=== PATIENT | female | born 1970 | race Caucasian/White ===

== ENCOUNTER 2019-04-25 10:28 | Outpatient (CLI) | payer BC ==
--- NOTE | 2019-04-25 11:55 | RAD ---
Barium swallow: 04/25/2019 COMPARISON: None HISTORY: Gastroesophageal reflux disease, LAP-BAND FINDINGS: Pants Busheler radiograph of the chest demonstrate no pneumothorax or pleural fluid and no focal con solidation or alveolar edema. Barium swallow was performed. No evidence for mass lesion or stricture is evident within the esophagu s. Of note, the lap band is slightly below the level of the gastroesophageal junction, instead at the level of the gastric fundus. A portion of the gastric fundus has herniated through the lap band a nd is now cranial to the lap band. This portion of the stomach fills and empties with slight delay, especially when the patient is in the oblique prone position. The patient ingested a barium tablet wh ich traverses the gastroesophageal junction as well as the lap band without delay. No gastroesophageal reflux could be elicited during this examination. Exposure data: 1.3 minutes of fluoroscopic time, 182.72 mg IMPRESSION: The lap band is located slightly distal to the gastroesophageal junction with a portion o f the gastric fundus which herniates through the lap band and is now located cranial to the lap band.
== END 2019-04-25 10:29 | disposition home or self-care (01) ==
LOC: RAD 10:28
PROVIDERS: ATTEND Surgery
DX: K21.9 Gastro-esophageal reflux disease without esophagitis (principal)
CPT/HCPCS: 74220

== ENCOUNTER 2019-05-23 10:59 | Outpatient (CLI) | payer BC | END 2019-05-23 11:00 | disposition home or self-care (01) | LOC: DTY/OP 10:59 | PROVIDERS: ATTEND Surgery | DX: E66.01 Morbid (severe) obesity due to excess calories (principal) | CPT/HCPCS: 97802 ==

== ENCOUNTER 2019-07-05 08:08 | Outpatient (CLI) | payer BC ==
--- NOTE | 2019-07-05 11:43 | RAD ---
RADIOGRAPH CHEST 2 VIEWS: DATE: 07/05/2019 HISTORY: 48-year-old female for preoperative clearance FINDINGS: There is no airspace density, pulmonary edema, pleural effusion, pneumothorax, or cardiomegaly. IMPRESSION: No acute cardiopulmonary findings.
[2019-07-05 11:50] LABS: Hemoglobin 13.2 g/dL (12.0-16.0); Mean Corpuscular HGB CONC 31.9 g/dL (32.0-36.0); Mean Corpuscular Hemoglobin 28.3 pg (27.0-31.0); Mean Corpuscular Volume 88.9 fL (78.0-98.0); Mean Platelet Volume 8.1 fL (7.4-10.4); Platelet Count 268 thou/uL (130-400); RBC Distribution Width 12.7 % (11.5-14.5); Red Blood Cell (RBC) Count 4.67 mill/uL (4.20-5.40); White Blood Cell (WBC) Count 9.4 thou/uL (4.8-10.8)
[2019-07-05 12:04] LABS: Hemoglobin A1c 5.2 % (4.0-6.0)
[2019-07-05 12:18] LABS: ALT (SGPT) 14 U/L (8-55); AST (SGOT) 16 U/L (5-34); Albumin 4.4 g/dL (3.5-5.0); Alkaline Phosphatase 75 U/L (40-110); Anion Gap 12 mmol/L (10-20); BUN (Urea Nitrogen) 14 mg/dL (7.0-18.7); Bilirubin, Total 0.3 mg/dL (0.2-1.2); Calc. Creatinine Clearance 0 mL/min (70-130); Carbon Dioxide 27 mmol/L (22-29); Chloride 104 mmol/L (98-107); Estimated GFR-MDRD 86; Globulin 2.5 g/dL (2.4-3.5); Glucose 85 mg/dL (70-105); Potassium 4.1 mmol/L (3.5-5.1); Protein, Total 6.9 g/dL (6.0-8.3); Sodium 139 mmol/L (136-145)
[2019-07-05 12:24] LABS: BHCG - Serum Negative (NEGATIVE); Pregs Control Background? CLEAR/WHITE (CLR/WHITE); Pregs Control Bar Appear? YES (CONTROL BAR)
== END 2019-07-05 08:09 | disposition home or self-care (01) ==
LOC: LABBT 08:08
PROVIDERS: ATTEND Surgery
DX: Z01.818 Encounter for other preprocedural examination (principal); E66.01 Morbid (severe) obesity due to excess calories
CPT/HCPCS: 71046; 80053; 83036; 84703; 85027; 93005; 93010

== ENCOUNTER 2019-07-05 10:15 | Inpatient (IN) | payer BC ==
[2019-07-18] MEDS ORDERED: Fentanyl 100 MCG/2 ML VIAL ONE (10:06)
[2019-07-18] MEDS ORDERED: Midazolam HCl 2 mg/2 ml Vial ONE ×2 (10:06→10:30)
[2019-07-18] MEDS ORDERED: Heparin 5,000 UNITS/ML VIAL ONE (10:30)
[2019-07-18] MEDS ORDERED: Bupivacaine 0.25% HCL 30 ML VIAL ONE (10:41)
[2019-07-18] MEDS ORDERED: Lidocaine 1% w/Epinephrine 1:100K 20 ML VIAL ONE (10:41)
[2019-07-18] MEDS ORDERED: PROPOFOL 200 MG/20 ML VIAL ONE (11:40)
[2019-07-18] MEDS ORDERED: Ondansetron PF 4 MG/2 ML Vial ONE (11:40)
[2019-07-18] MEDS ORDERED: Lidocaine 1% PF 5 ML VIAL ONE (11:40)
[2019-07-18] MEDS ORDERED: Ketorolac Tromethamine 30 MG/ML VIAL ONE (11:40)
[2019-07-18] MEDS ORDERED: Glycopyrrolate 0.2 MG/ML 5 ML SYRINGE ONE (11:40)
[2019-07-18] MEDS ORDERED: Rocuronium Bromide 10 MG/ML (10ML VIAL) ONE (11:40)
[2019-07-18] MEDS ORDERED: Dexamethasone 20 MG/5 ML VIAL ONE (11:40)
[2019-07-18] MEDS ORDERED: Promethazine HCl 25 MG/ML VIAL IM PRN ×3 (12:44→14:05)
[2019-07-18] MEDS ORDERED: Promethazine HCl 25 MG/ML VIAL SLOW IVP PRN (12:44)
[2019-07-18] MEDS ORDERED: Ondansetron HCl/PF 4 MG/2 ML Vial IVP PRN (12:44)
[2019-07-18] MEDS ORDERED: diphenhydrAMINE 50 MG/ML VIAL IVP PRN ×2 (13:57→14:05)
[2019-07-18] MEDS ORDERED: Dextrose 50% Abboject 50 ML SYRINGE SLOW IVP PRN (13:57)
[2019-07-18] MEDS ORDERED: Dextrose 5% in Water 1,000 ML IV PRN (13:57)
[2019-07-18] MEDS ORDERED: hydrALAZINE 20 MG/ML VIAL SLOW IVP PRN (13:57)
[2019-07-18] MEDS ORDERED: Ondansetron PF 4 MG/2 ML Vial IVP PRN ×2 (13:57→14:05)
[2019-07-18] MEDS ORDERED: Hydrocodone-Acetamin 15 ML UDCUP PO PRN (13:57)
[2019-07-18] MEDS ORDERED: diphenhydrAMINE 50 MG/ML VIAL IM PRN (14:05)
[2019-07-18] MEDS ORDERED: diphenhydrAMINE 25 MG CAP PO PRN (14:05)
[2019-07-18] MEDS ORDERED: fentaNYL Citrate/PF 2,000 MCG in Sodium Chloride 0.9% 60 ML IV PRN (14:05)
[2019-07-18] MEDS ORDERED: Zolpidem Tartrate 5 MG TAB PO PRN (14:05)
[2019-07-18] MEDS ORDERED: Naloxone HCl 0.4 mg/ml Vial IV PRN (14:05)
[2019-07-18] MEDS ORDERED: Communication Order-Pharmacy FS SCH (14:15)
[2019-07-18 15:45] VITALS: BMI 37.4
[2019-07-18] MEDS: D5 1/2 NS w/20 mEq KCL 1,000 ML IV SCH (16:30)
[2019-07-18] MEDS: Mometasone/Formoterol 120 PUFF INHALER INH SCH (19:01)
[2019-07-18] MEDS ORDERED: Montelukast Sodium 10 mg Tablet PO SCH (21:00)
[2019-07-18] MEDS ORDERED: PROVENTIL INHALER 6.7 G (200 INHALATIONS) INH PRN (21:00)
[2019-07-18] MEDS ORDERED: Enoxaparin Sodium 40 MG/0.4 ML SYRINGE SC SCH (21:00)
[2019-07-19] MEDS: D5 1/2 NS w/20 mEq KCL 1,000 ML IV SCH ×2 (01:45→09:02)
[2019-07-19 04:57] LABS: #Lymphocytes 0.9 thou/uL (1.20-3.40); #Monocytes 0.7 thou/uL (0.11-0.59); #Neutrophils 8.8 thou/uL (1.40-6.50); %Basophils 0.1 % (0.0-1.0); %Eosinophils 0.3 % (0.0-10.0); %Lymphocytes 8.7 % (21.0-51.0); %Monocytes 6.7 % (0.0-10.0); %Neutrophils 84.2 % (42.0-75.0); Hemoglobin 11.7 g/dL (12.0-16.0); Mean Corpuscular HGB CONC 32.8 g/dL (32.0-36.0); Mean Corpuscular Hemoglobin 30.2 pg (27.0-31.0); Mean Corpuscular Volume 92.2 fL (78.0-98.0); Mean Platelet Volume 8.8 fL (7.4-10.4); Platelet Count 230 thou/uL (130-400); RBC Distribution Width 12.7 % (11.5-14.5); Red Blood Cell (RBC) Count 3.87 mill/uL (4.20-5.40); White Blood Cell (WBC) Count 10.5 thou/uL (4.8-10.8)
[2019-07-19 05:19] LABS: Anion Gap 13 mmol/L (10-20); BUN (Urea Nitrogen) 8 mg/dL (7.0-18.7); Calc. Creatinine Clearance 138 mL/min (70-130); Calcium 8.1 mg/dL (7.8-10.44); Carbon Dioxide 21 mmol/L (22-29); Chloride 107 mmol/L (98-107); Estimated GFR-MDRD 74; Glucose 100 mg/dL (70-105); Potassium 4.5 mmol/L (3.5-5.1); Sodium 136 mmol/L (136-145)
[2019-07-19] MEDS: Mometasone/Formoterol 120 PUFF INHALER INH SCH (06:54)
[2019-07-19 08:10] VITALS: BP 96/65
[2019-07-19] MEDS ORDERED: Hydrocodone-Acetamin 15 ML UDCUP PO PRN (08:52)
[2019-07-19] MEDS ORDERED: Pantoprazole 40 MG VIAL IVP SCH (09:00)
[2019-07-19] MEDS ORDERED: Escitalopram Oxalate 20 mg Tablet PO SCH (09:00)
[2019-07-19 11:03] VITALS: TEMP 98.4
--- NOTE | 2019-07-19 14:40 | OP ---
DATE OF PROCEDURE: 07/18/2019 PREOPERATIVE DIAGNOSES: 1. Other complication of gastric band. 2. Morbid obesity. 3. Dysphagia. POSTOPERATIVE DIAGNOSES: 1. Other complication of gastric band. 2. Morbid obesity. 3. Dysphagia. 4. Hiatal hernia. PROCEDURES PERFORMED: 1. Laparoscopic removal of gastric band and subcutaneous port. 2. Laparoscopic sleeve gastrectomy with Steen staple line reinforcements and 38-[place] bougie. 3. Laparoscopic hiatal hernia repair without fundoplication. ANESTHESIA: General. ESTIMATED BLOOD LOSS: Minimal. COMPLICATIONS: None. FINDINGS: There was small paraesophageal hiatal hernia. DESCRIPTION OF PROCEDURE: The patient was taken to the operating room and laid supine on the operating room table. After general anesthetic was obtained, OG tube was used to decompress the stomach. The abdomen was prepped and draped in a sterile fashion. Left subcostal 5-mm Optiview trocar was placed in usual fashion. High-flow pneumoperitoneum was obtained. Left and right abdominal 12-mm ports as well as a right subcostal 5-mm port were placed under direct visualization. There were some adhesions taken down in the area of the pylorus of the stomach. A 5-mm incision was made at the xiphoid and Cary was used to raise the liver off the GE junction. Short gastric was taken down from mid body of stomach to left rk of diaphragm. Left rk, angle of His, and fundus were completely dissected. There was more scar tissue than normal in this area given the previous placement of band. The peritoneum was cauterized over the top of the lap band buckle. The band was able to be unbuckled and removed from behind the stomach. The tubing was cut as the lap band exited the abdomen. Dissection was performed over the caudate lobe medially and the right rk of the diaphragm was found. There was a hiatal hernia. Circumferential dissection of the esophagus and the GE junction was performed without injury. Window was made posterior to the GE junction and the right and left rk were each dissected out and isolated. OG tube was removed and 38 bougie was brought in its tip left in the antrum of the stomach. The short gastrics were taken down to a distance of 6 cm proximal to the pylorus. Multiple loads of [place] stapling device with Steen staple line reinforcements were used to perform the sleeve. The first was a green load fired up at a distance of 6 cm proximal to the pylorus angled up towards the incisura. Multiple loads were then fired up along the bougie and the stomach was completely transected at the angle of His. The stomach was removed from the left abdominal incision. This fascial defect was closed using GraNee needle and 0 Vicryl tie. The lap band itself had been removed from this incision as well. There was a small bleeder on the top of the spleen. This was controlled using Surgicel and an unfolded Ray-Sabas. All Ray-Sabas's and the Surgicel were removed from the abdomen prior to the end of the procedure. EGD scope was passed through esophagus and stomach to the level of duodenum without obstruction. No stricture at the incisura. No air leakage through the staple lines. EGD scope was used to decompress the stomach. It was pulled and removed. All port sites were infiltrated using local anesthetic. All ports were removed under camera visualization. Pneumoperitoneum was let down. An incision was made over the lap band port and this port was removed. Incisions were all irrigated and closed using 4-0 Monocryl and Dermabond. Prior to finishing the intraabdominal portion of the procedure, the posterior crura were closed using 1 Ethibond suture and the tie knot system. Care was taken to avoid making the GE junction too tight. The patient was sent to Recovery in stable condition. All instrument counts, needle counts, and lap counts were correct. Job ID: [id number]
--- NOTE | 2019-07-19 14:41 | DIS ---
DATE OF ADMISSION: 07/18/2019 DATE OF DISCHARGE: 07/19/2019 ADMITTING DIAGNOSES: 1. Other complication of gastric band. 2. Dysphagia. 3. Morbid obesity. 4. Hiatal hernia. DISCHARGE DIAGNOSES: 1. Other complication of gastric band. 2. Dysphagia. 3. Morbid obesity. 4. Hiatal hernia. PROCEDURES PERFORMED: Laparoscopic sleeve gastrectomy over removal of lap band and hiatal hernia repair by Dr. Arrieta without complication. CONDITION ON DISCHARGE: Improved. HOSPITAL COURSE: On postop day #1, the patient is doing well. She tolerated the liquid diet. She is ambulatory. She has minimal pain. She is discharged home. Prescriptions already sent over to her pharmacy. She will follow up with me in 2 weeks. Job ID: [id number]
== END 2019-07-19 14:25 | disposition home or self-care (01) | DRG 328 ==
LOC: SURG A 07-18 09:36 → EDSTATUS 07-18 10:15 → SURG A 07-18 15:48
PROVIDERS: ADMIT Surgery; ATTEND Surgery
PROC: 0DP64CZ Removal of Extraluminal Device from Stomach, Percutaneous Endoscopic Approach (ICD-10-PCS; principal; 2019-07-18)
PROC: 0DB64Z3 Excision of Stomach, Percutaneous Endoscopic Approach, Vertical (ICD-10-PCS; 2019-07-18)
PROC: 0BQT4ZZ Repair Diaphragm, Percutaneous Endoscopic Approach (ICD-10-PCS; 2019-07-18)
DX: K95.09 Other complications of gastric band procedure (principal); Y84.8 Other medical procedures as the cause of abnormal reaction of the patient, or of later complication, without mention of misadventure at the time of the procedure; E66.01 Morbid (severe) obesity due to excess calories; E78.00 Pure hypercholesterolemia, unspecified; K21.9 Gastro-esophageal reflux disease without esophagitis; G47.33 Obstructive sleep apnea (adult) (pediatric); F41.9 Anxiety disorder, unspecified; G43.909 Migraine, unspecified, not intractable, without status migrainosus; E78.5 Hyperlipidemia, unspecified; J30.2 Other seasonal allergic rhinitis; R13.10 Dysphagia, unspecified; K44.9 Diaphragmatic hernia without obstruction or gangrene; Z68.37 Body mass index [BMI] 37.0-37.9, adult; Z79.899 Other long term (current) drug therapy; Z99.89 Dependence on other enabling machines and devices
CPT/HCPCS: 36415; 80048; 85025; 88307; 88312; 90471; 90732; 94760; C9113; G0009; J0690; J1100; J1644; J1650; J1885; J2001; J2250; J2405; J2704; J3010; Q0163; S0020

== ENCOUNTER 2019-07-25 16:00 | Day surgery (SDC) | payer BC ==
[2019-07-25] MEDS ORDERED: Sodium Chloride 0.9% 2,000 ML IV SCH (16:15)
[2019-07-25 16:41] VITALS: BP 122/69; TEMP 98.5
[2019-07-25] MEDS ORDERED: Multivitamins, Adult 10 ML, Thiamine HCl 100 MG in Sodium Chloride 0.9% 500 ML IV SCH (17:00)
[2019-07-25] MEDS ORDERED: Ondansetron PF 4 MG/2 ML Vial SLOW IVP PRN (17:25)
== END 2019-07-25 18:35 | disposition home or self-care (01) ==
LOC: ONC/OP 16:00
PROVIDERS: ATTEND Surgery
DX: E86.0 Dehydration (principal)
CPT/HCPCS: 96361; 96365; 96366; 96375; J3411; J7050

== ENCOUNTER 2019-08-01 08:44 | Outpatient (CLI) | payer BC ==
--- NOTE | 2019-08-01 09:52 | ULT ---
ULTRASOUND WITH DOPPLER DUPLEX VENOUS LOWER EXTREMITIES BILATERAL: DATE: 07/12/2019 HISTORY: 48-year-old female with bilateral lower extremity pain. TECHNIQUE: Color flow Doppler, spectral waveform analysis of pulsed Doppler, and joseph-scale imaging with christel luz and augmentation, were used to evaluate the bilateral common femoral, femoral, popliteal, mechanical facilities technician ior tibial, and superficial femoral, veins; and the proximal portions of the profunda femoral and gre ater saphenous, veins. FINDINGS: There is normal compressibility, demonstration of blood flow by color Doppler and pulsed Doppler, and response to augmentation, in all interrogated veins. IMPRESSION: Negative. No deep vein thrombosis in the bilateral lower extremities. jn[] POS: [facility]
== END 2019-08-01 08:45 | disposition home or self-care (01) ==
LOC: ULT 08:44
PROVIDERS: ATTEND Surgery
DX: M79.669 Pain in unspecified lower leg (principal)
CPT/HCPCS: 93970

== ENCOUNTER 2019-08-03 09:54 | Day surgery (SDC) | payer BC ==
[2019-08-03] MEDS: Sodium Chloride 0.9% 1,000 ML IV SCH ×2 (10:00→11:15)
== END 2019-08-03 16:10 | disposition home or self-care (01) ==
LOC: ONC/OP 09:54
PROVIDERS: ATTEND Surgery
DX: E86.0 Dehydration (principal)
CPT/HCPCS: 96361; 96365; J3411

== ENCOUNTER 2025-02-11 13:33 | Outpatient (CLI) | payer OTHER ==
[~2025-02-11 13:33] MED LIST: Iopamidol 370 76% 100 ML VIAL ONE
== END 2025-02-11 13:34 | disposition home or self-care (01) ==
LOC: CT 13:33
PROVIDERS: ATTEND Surgery
DX: C20 Malignant neoplasm of rectum (principal); R91.8 Other nonspecific abnormal finding of lung field; C78.7 Secondary malignant neoplasm of liver and intrahepatic bile duct; R59.0 Localized enlarged lymph nodes
CPT/HCPCS: 71260; 74177; Q9967

== ENCOUNTER 2025-02-26 09:06 | Outpatient (CLI) | payer OTHER | END 2025-02-26 09:07 | disposition home or self-care (01) | LOC: SCSMRI 09:06 | PROVIDERS: ATTEND Radiology Radiation Oncology | DX: C20 Malignant neoplasm of rectum (principal) | CPT/HCPCS: 72197 ==

== ENCOUNTER 2025-04-26 09:29 | Outpatient (CLI) | payer OTHER | END 2025-04-26 09:30 | disposition home or self-care (01) | LOC: BICRAD 09:29 | PROVIDERS: ATTEND Internal Medicine Hematology & Oncology | DX: C20 Malignant neoplasm of rectum (principal); D50.0 Iron deficiency anemia secondary to blood loss (chronic) | CPT/HCPCS: 71046 ==